=== PATIENT | male | born 1965 | race Asian ===

== ENCOUNTER → 2024-11-19 07:50 | Outpatient (CLI) | payer OTHER, SELFPAY ==
--- NOTE | 2024-11-19 07:53 | DI.ECHO.S_ITS ---
[facility] : : [address] : : [place] : : [id number] : : Phone: [phone] Echocardiogram Report + + :Name: DIMAS MEZA Study Date: 11/19/2024 Height: 66 in : :[facility] ReadingLocation: Weight: 160 lb : : Gender: Male BSA: 1.8 m2 : :: 1965 Age: 59 yrs BP: 147/97 mmHg: :Reason For Study: DIZZINESS, PALPITATIONS : :Ordering Physician: MANDEEP, : :DEMETRA Performed By: Vlad Palacio : :Referring: SY FIGUEROA : + + Interpretation Summary The left ventricle is normal in size. The left ventricular ejection fraction is normal. The ejection fraction is estimated to be 60-65%. The right ventricle is normal in size and function. No significant valvular pathology seen. The IVC is of normal diameter and collapses greater than 50% with a sniff. This suggests a low right atrial pressure of 3 mm Hg. Procedure: A two-dimensional transthoracic echocardiogram with color flow and Doppler was performed. The study quality was technically good. There is no prior echocardiogram noted for this patient. The patient was in normal sinus rhythm during the exam. Left Ventricle: The left ventricle is normal in size. There is normal left ventricular wall thickness. There is no thrombus. A false chord is noted (normal variant). The ejection fraction is estimated to be 60-65%. The left ventricular ejection fraction is normal. There are no focal wall motion abnormalities. Diastolic parameters suggest a relaxation abnormality of the left ventricle, consistent with probable normal filling pressures. Right Ventricle: The right ventricle is normal in size and function. Atria: The left atrial size is normal. Right atrial size is normal. There is no Doppler evidence for an interatrial shunt. Mitral Valve: The mitral valve leaflets appear normal. There is no evidence of stenosis, fluttering, or prolapse. There is no mitral regurgitation noted. Aortic Valve: The aortic valve is trileaflet. The aortic valve opens well. There is no aortic valve stenosis. No aortic regurgitation is present. Tricuspid Valve: The tricuspid valve leaflets are thin and pliable. There is trace tricuspid regurgitation. The right ventricular systolic pressure is estimated to be at least 27 mmHg based on an estimated right atrial pressure of 3 mm Hg. Pulmonic Valve: The pulmonic valve leaflets are thin and pliable; valve motion is normal. There is trace pulmonic regurgitation. Great Vessels: The aortic root is normal size. The dimensions of the ascending aorta are normal. The pulmonary artery is normal size. The IVC is of normal diameter and collapses greater than 50% with a sniff. This suggests a low right atrial pressure of 3 mm Hg. Pericardium/ Pleura There is no pericardial effusion. There is no pleural effusion. MMode/2D Measurements & Calculations LVIDd: 4.4 cm LVOT diam: 2.1 cm LVIDs: 3.2 cm Ao root diam: 3.6 cm FS: 28.3 % asc Aorta Diam: 3.2 cm EPSS: 0.57 cm Ao Arch Diam (Prox Trans): 2.3 cm IVSd: 0.93 cm LVPWd: 0.80 cm LV swift. diameter/BSA (cm/m^2): 2.4 LV sys. diameter/BSA (cm/m^2): 1.7 LA A2 area: 19.4 cm2 RA long axis: 4.9 cm LA A4 area: 16.9 cm2 RA area: 16.4 cm2 LA length (vol): 5.6 cm RA vol: 46.3 ml LA vol: 49.4 ml RA : 25.4 ml/m2 LA vol index: 27.2 ml/m2 IVC diam: 1.8 cm RVD1 (basal): 3.7 cm RVD2 (mid): 2.6 cm TAPSE: 2.2 cm Doppler Measurements & Calculations Ao V2 max: 128.5 cm/sec LVOT Max Víctor: 100.1 cm/sec Ao V2 mean: 94.8 cm/sec LV V1 max P.0 mmHg Ao max P.6 mmHg LV V1 VTI: 19.5 cm Ao mean P.9 mmHg BAILEE(I,D): 2.7 cm2 Ao V2 VTI: 24.9 cm BAILEE(V,D): 2.7 cm2 sev ratio: 0.78 BAILEE indexed to BSA (cm^2/m^2): 1.5 MV E max víctor: 53.5 cm/sec TR max víctor: 244.6 cm/sec MV A max víctor: 67.2 cm/sec TR max P.9 mmHg MV E/A: 0.80 PA V2 max: 58.4 cm/sec Med Peak E' Víctor: 6.1 cm/sec PA V2 mean: 37.6 cm/sec E/E' med: 8.7 PA mean P.65 mmHg Lat Peak E' Víctor: 7.2 cm/sec PA pr(Accel): 31.0 mmHg E/E' lat: 7.5 E/e' average: 8.1 MV dec time: 0.18 sec SV(LVOT): 68.4 ml Reading Physician:05:12 PM
== END ==
PROVIDERS: PCP Registered Nurse; Referring Provider Physician Assistant; Visit Provider Physician Assistant
DX: R00.2 Palpitations (principal); R42 Dizziness and giddiness
CPT/HCPCS: 93306